=== PATIENT | female | born 1970 | race Caucasian/White ===

== ENCOUNTER → 2022-01-01 | Outpatient (CLI) | payer MEDICARE, OTHER ==
[~2022-01-01] MED LIST: ALORA1 EAC1 TD; ASPIR 8181 MG PO; BENTYL 20MG TAB20 MG PO; BRILINTA90 MG PO; CRESTOR20 MG PO; IMDUR ER TAB 3030 MG PO; LEVAQUIN500 MG PO; LISINOPRIL10 MG PO; METOPROLOL SUCC50 MG PO; NITROSTAT 0.4100 TAB SL; PHENERGAN 12.12.5 M1 PO; PHENERGAN 25 MG25 MG PR; PROTONIX 40 MG40 M1 PO; ZOLOFT100 MG PO; ZYRTEC10 MG PO
== END ==
LOC: EXRD 15:11
DX: I25.10 Atherosclerotic heart disease of native coronary artery without angina pectoris (principal)
CPT/HCPCS: 71046